=== PATIENT | male | born 1980 | race Caucasian/White ===

== ENCOUNTER 2017-10-18 01:49 | Inpatient (IN) | payer MEDICAID ==
[~2017-10-18] VITALS: Ht 172.7 cm; Wt 71.9 kg
[~2017-10-18 01:49] MED LIST: HYDR-569 PO; IBUP-1985 PO
[2017-10-18] MEDS ORDERED: normal saline 1000ML IV soln IVB ONE (02:35)
[2017-10-18 03:20] LABS: BASOPHILS # (AUTO) 0.1 X10'3 (0-0.2); EOSINOPHILS # (AUTO) 0.3 X10'3 (0-0.9); EOSINOPHILS % (AUTO) 3.8 % (0-6); HEMATOCRIT 36.4 % (42.0-52.0); HEMOGLOBIN 12.4 g/dl (14.0-17.9); LYMPHOCYTES # (AUTO) 2.8 X10'3 (1.1-4.8); LYMPHOCYTES % (AUTO) 40.5 % (21-51); MEAN CORPUSCULAR HEMOGLOBIN 31.4 PG (27.0-31.0); MEAN CORPUSCULAR HGB CONC 34.1 % (33.0-36.5); MEAN CORPUSCULAR VOLUME 92.1 FL (78-98); MEAN PLATELET VOLUME 7.8 FL (7.4-10.4); MONOCYTES # (AUTO) 0.7 X10'3 (0-0.9); NEUTROPHILS # (AUTO) 3.1 X10'3 (1.8-7.7); NEUTROPHILS % (AUTO) 44.7 % (42-75); PLATELET COUNT 283 X10'3 (140-440); RED BLOOD COUNT 3.96 X10'6 (4.70-6.10); RED CELL DISTRIBUTION WIDTH 14.4 % (11.5-14.5); WHITE BLOOD COUNT 6.9 X10'3 (4.5-11.0)
[2017-10-18 03:32] LABS: INR 1.2 INR; PARTIAL THROMBOPLASTIN TIME 31 SECONDS (22-32); PROTHROMBIN TIME 12.6 SECONDS (9.0-12.0)
[2017-10-18 03:46] LABS: ALBUMIN 3.1 G/DL (3.4-5.0); ALKALINE PHOSPHATASE 335 IU/L (46-116); ANION GAP 10 (8-16); ASPARTATE AMINO TRANSFERASE 816 U/L (10-37); BILIRUBIN,TOTAL 5.9 MG/DL (0.1-1.0); BLOOD UREA NITROGEN 10 MG/DL (7-18); BUN/CREATININE RATIO 9.5 (5.4-32.0); CHLORIDE 102 MMOL/L (99-107); CREATININE 1.05 MG/DL (0.60-1.10); ETHANOL < 0.010 GM/DL (0.0-0.010); LIPASE 92 U/L (73-393); POTASSIUM 3.5 MMOL/L (3.5-5.1); SODIUM 142 MMOL/L (135-145); TOTAL CARBON DIOXIDE 29.9 MMOL/L (24-32); eGFR 80 ML/MIN
[2017-10-18 03:52] LABS: ALANINE AMINOTRANSFERASE 2780 U/L (12-78); ALBUMIN/GLOBULIN RATIO 0.8 (1.1-1.5); GLUCOSE 85 MG/DL (70-104); TOTAL PROTEIN 6.8 G/DL (6.4-8.2)
[2017-10-18 06:26] LABS: CLARITY,URINE CLEAR (Clear); COLOR,URINE ORANGE (Yellow)
[2017-10-18 06:27] LABS: UA COLLECTION TYPE NON-SPECIFIED
[2017-10-18 06:36] LABS: URINE AMPHETAMINE SCREEN POSITIVE (Neg); URINE BARBITUATE SCREEN NEGATIVE (Neg); URINE BENZODIAZEPINES SCREEN NEGATIVE (Neg); URINE CANNABINOID SCREEN NEGATIVE (Neg); URINE COCAINE SCREEN NEGATIVE (Neg); URINE METHADONE SCREEN NEGATIVE (Neg); URINE OPIATE SCREEN POSITIVE (Neg); URINE PHENCYCLIDINE SCREEN NEGATIVE (Neg)
[2017-10-18 06:46] LABS: BACTERIA,URINE NONE SEEN /HPF (Neg); MUCUS STRANDS NONE SEEN /LPF (Neg); RBC,URINE NONE SEEN /HPF (0-2); SQUAMOUS EPITHELIAL CELL,UR NONE SEEN /LPF (FEW); WBC,URINE NONE SEEN /HPF (0-4)
[2017-10-18 06:47] LABS: CAL OXALATE CRYSTALS 1+ /HPF (NEGATIVE)
[2017-10-18 06:48] LABS: GLUCOSE, URINE Negative (Neg); PH,URINE 6.5 (4.8-8.0); PROTEIN,URINE Negative (Neg)
[2017-10-18 06:49] LABS: KETONES,URINE Negative (Neg); NITRITES, URINE NEGATIVE (Neg); OCCULT BLOOD,URINE NEGATIVE (Neg)
[2017-10-18 06:50] LABS: LEUKOCYTE ESTERASE ,URINE NEGATIVE (Neg)
[2017-10-18] MEDS ORDERED: NO HOME MEDS (07:10)
[2017-10-18] MEDS ORDERED: mag hydrox/Alum hydrox/simeth 30ml oral suspension PO PRN (08:50)
[2017-10-18] MEDS ORDERED: magnesium hydroxide 30ml (MOM) UD suspension PO PRN (08:50)
[2017-10-18] MEDS ORDERED: ondansetron/PF 4mg/2ml inj IV PRN (08:50)
[2017-10-18] MEDS: normal saline 1000ml 1,000 ML IV SCH ×3 (09:03→22:22)
[2017-10-18 09:27] LABS: BILIRUBIN,DIRECT 4.4 MG/DL (0-0.3)
[2017-10-18 14:30] VITALS: BP 104/71
[2017-10-18 16:16] LABS: HIV ANTIBODY 1&2 RAPID NON-REACTIVE (Neg)
[2017-10-18 19:00] VITALS: BP 98/59
[2017-10-18 23:00] VITALS: BP 106/70
[2017-10-19 03:00] VITALS: BP 137/89
[2017-10-19] MEDS: normal saline 1000ml 1,000 ML IV SCH (05:28)
[2017-10-19 05:33] LABS: BASOPHILS % (AUTO) 0.5 % (0-1); EOSINOPHILS # (AUTO) 0.3 X10'3 (0-0.9); EOSINOPHILS % (AUTO) 3.6 % (0-6); HEMATOCRIT 34.6 % (42.0-52.0); HEMOGLOBIN 11.8 g/dl (14.0-17.9); LYMPHOCYTES # (AUTO) 2.4 X10'3 (1.1-4.8); LYMPHOCYTES % (AUTO) 34.3 % (21-51); MEAN CORPUSCULAR HEMOGLOBIN 30.8 PG (27.0-31.0); MEAN CORPUSCULAR VOLUME 90.7 FL (78-98); MEAN PLATELET VOLUME 8.4 FL (7.4-10.4); MONOCYTES # (AUTO) 0.5 X10'3 (0-0.9); MONOCYTES % (AUTO) 7.4 % (2-12); NEUTROPHILS # (AUTO) 3.8 X10'3 (1.8-7.7); NEUTROPHILS % (AUTO) 54.2 % (42-75); PLATELET COUNT 254 X10'3 (140-440); RED BLOOD COUNT 3.82 X10'6 (4.70-6.10); RED CELL DISTRIBUTION WIDTH 14.6 % (11.5-14.5)
[2017-10-19 06:00] VITALS: BP 90/58
[2017-10-19 06:00] LABS: ALBUMIN 2.6 G/DL (3.4-5.0); ALBUMIN/GLOBULIN RATIO 0.7 (1.1-1.5); ALKALINE PHOSPHATASE 279 IU/L (46-116); ANION GAP 4 (8-16); ASPARTATE AMINO TRANSFERASE 341 U/L (10-37); BILIRUBIN,TOTAL 3.4 MG/DL (0.1-1.0); BLOOD UREA NITROGEN 10 MG/DL (7-18); BUN/CREATININE RATIO 9.9 (5.4-32.0); CALCIUM 8.8 MG/DL (8.5-10.1); CHLORIDE 107 MMOL/L (99-107); CREATININE 1.01 MG/DL (0.60-1.10); POTASSIUM 4.4 MMOL/L (3.5-5.1); SODIUM 141 MMOL/L (135-145); TOTAL CARBON DIOXIDE 30.1 MMOL/L (24-32); TOTAL PROTEIN 6.3 G/DL (6.4-8.2); eGFR 84 ML/MIN
[2017-10-19 06:05] LABS: ALANINE AMINOTRANSFERASE 1759 U/L (12-78); GLUCOSE 100 MG/DL (70-104)
[2017-10-19 13:26] LABS: HBSAG SCREEN Negative (Negative); HEP A AB, IGM Negative (Negative); HEP B CORE AB, IGM Negative (Negative); HEPATITIS C ANTIBODY >11.0 s/co ratio (0.0-0.9)
== END 2017-10-19 11:55 | disposition home or self-care (01) ==
LOC: ER 01:50 → ED HOLD 08:50 → PCU 3S 14:25
PROVIDERS: ADMIT Internal Medicine; ATTEND Internal Medicine
DX: B17.9 Acute viral hepatitis, unspecified (principal); K80.10 Calculus of gallbladder with chronic cholecystitis without obstruction; K76.0 Fatty (change of) liver, not elsewhere classified; D64.9 Anemia, unspecified; F17.200 Nicotine dependence, unspecified, uncomplicated; F11.10 Opioid abuse, uncomplicated; F15.10 Other stimulant abuse, uncomplicated; Z79.899 Other long term (current) drug therapy
CPT/HCPCS: 36415; 76700; 80053; 80305; 80320; 81001; 82140; 82248; 83690; 85025; 85610; 85730; 86703; 86705; 86706; 86709; 86803; 87340; J7030

== ENCOUNTER 2019-01-13 06:28 | Emergency (ER) | payer MEDICAID, OTHER ==
[~2019-01-13] VITALS: Ht 172.7 cm; Wt 67.0 kg
[~2019-01-13 06:28] MED LIST changes: -HYDR-569 PO; -IBUP-1985 PO; +NO HOME MEDS
--- NOTE | 2019-01-13 06:30 | NUR ---
PT IN RESTROOM AT THIS TIME.
[2019-01-13 06:35] VITALS: BP 117/65
[2019-01-13] MEDS ORDERED: DOXY100C43 PO (07:04)
== END 2019-01-13 07:20 | disposition home or self-care (01) ==
LOC: ER 06:29
DX: L03.116 Cellulitis of left lower limb (principal); Z79.899 Other long term (current) drug therapy
CPT/HCPCS: 99283

== ENCOUNTER 2019-04-03 10:32 | Emergency (ER) | payer MEDICAID, OTHER ==
[~2019-04-03] VITALS: Ht 175.3 cm; Wt 67.8 kg
--- NOTE | 2019-04-03 11:20 | NUR ---
PT STANDING AT BEDSIDE TRYING TO URINATE ,PT STATED THAT HE NEED 10 MORE MINS TO TRY BEFORE BLADDER SCAN AND STARIGHT CATH,INFORMED THE PT WILL BE BACK .
[2019-04-03] MEDS ORDERED: ketorolac trometh inj. 60 MG/2 ML VIAL IM ONE (12:05)
[2019-04-03] MEDS ORDERED: ibuprofen tablet 400 MG TABLET PO ONE (12:35)
--- NOTE | 2019-04-03 12:36 | NUR ---
PT REFUSED TORADOL, IS UNABLE TO URINATE. PT IS REFUSING CATHETER. DR MILES NOTIFIED.
[2019-04-03 13:24] LABS: URINE AMPHETAMINE SCREEN POSITIVE (Neg); URINE BARBITUATE SCREEN NEGATIVE (Neg); URINE BENZODIAZEPINES SCREEN NEGATIVE (Neg); URINE CANNABINOID SCREEN NEGATIVE (Neg); URINE COCAINE SCREEN NEGATIVE (Neg); URINE METHADONE SCREEN NEGATIVE (Neg); URINE OPIATE SCREEN POSITIVE (Neg); URINE PHENCYCLIDINE SCREEN NEGATIVE (Neg)
[2019-04-03 13:27] LABS: CLARITY,URINE SLIGHTLY CLOUDY (Clear); COLOR,URINE YELLOW (Yellow); GLUCOSE, URINE >=1000 mg/dl (Neg); KETONES,URINE NEGATIVE (Neg); LEUKOCYTE ESTERASE ,URINE NEGATIVE (Neg); NITRITES, URINE POSITIVE (Neg); OCCULT BLOOD,URINE NEGATIVE (Neg); PROTEIN,URINE NEGATIVE (Neg); UROBILINOGEN,URINE 0.2 E.U/dL (0.2-1.0)
[2019-04-03 13:31] LABS: UA COLLECTION TYPE CLN CATCH MIDSTREAM
[2019-04-03 13:36] LABS: MUCUS STRANDS FEW /LPF (Neg); SQUAMOUS EPITHELIAL CELL,UR MANY /LPF (FEW)
[2019-04-03 13:43] LABS: STARCH,URINE FEW /HPF (NEGATIVE)
[2019-04-03 13:44] LABS: BACTERIA,URINE FEW /HPF (Neg); RBC,URINE 0-2 /HPF (0-2); WBC,URINE 0-4 /HPF (0-4)
[2019-04-03] MEDS ORDERED: SULF1TAB49 PO (13:57)
[2019-04-03 14:03] VITALS: BP 104/78
== END 2019-04-03 14:04 | disposition home or self-care (01) ==
LOC: ER 10:32
DX: N39.0 Urinary tract infection, site not specified (principal); E86.0 Dehydration; F15.10 Other stimulant abuse, uncomplicated; Z79.2 Long term (current) use of antibiotics
CPT/HCPCS: 80305; 81001; 82948; 99284; J1885

== ENCOUNTER 2022-02-04 14:38 | Emergency (ER) | payer MEDICAID ==
[~2022-02-04] VITALS: Ht 175.3 cm; Wt 72.7 kg
[2022-02-04 14:45] VITALS: BP 117/71
[2022-02-04] MEDS ORDERED: amox tr/potassium clavulanate 875/125mg TAB PO ONE (16:45)
[2022-02-04] MEDS ORDERED: HYDROcodone/acetaminophen 5mg/325mg tablet PO ONE (16:45)
[2022-02-04] MEDS ORDERED: AMOX-117 PO (16:47)
[2022-02-04] MEDS ORDERED: HYDR-3965 PO (16:47)
== END 2022-02-04 17:03 | disposition home or self-care (01) ==
LOC: ER 14:38
DX: K04.7 Periapical abscess without sinus (principal); K08.89 Other specified disorders of teeth and supporting structures; Z79.2 Long term (current) use of antibiotics; Z79.899 Other long term (current) drug therapy
CPT/HCPCS: 99283